=== PATIENT | male | born 1970 | race Caucasian/White ===

== ENCOUNTER 2017-01-19 01:36 | Emergency (ER) | payer MEDICARE, MEDICAID ==
[~2017-01-19] VITALS: Ht 177.8 cm; Wt 97.7 kg
[~2017-01-19 01:36] MED LIST: BACL20TA PO; FENO200C PO; GABA300C10 PO; GABA800T2 PO; OMEP-110 PO; TRAM100T3 PO; TRAM300T9 PO; TRAM50TA2 PO
[2017-01-19] MEDS ORDERED: FAMOTIDINE 20 MG TABLET ONE (03:56)
[2017-01-19] MEDS ORDERED: DIPHENHYDRAMINE 25 MG CAPSULE ONE (03:56)
[2017-01-19] MEDS ORDERED: DIPHENHYDRAMINE 25 MG CAPSULE PO ONE (04:00)
[2017-01-19] MEDS ORDERED: FAMOTIDINE 20 MG TABLET PO ONE (04:00)
[2017-01-19 04:58] VITALS: BP 131/83
== END 2017-01-19 05:00 | disposition home or self-care (01) ==
LOC: ED 04:01
DX: L50.1 Idiopathic urticaria (principal); L50.0 Allergic urticaria; E78.00 Pure hypercholesterolemia, unspecified; K21.9 Gastro-esophageal reflux disease without esophagitis
CPT/HCPCS: 99284; J7512; Q0163

== ENCOUNTER 2018-01-25 16:32 | Emergency (ER) | payer MEDICARE, MEDICAID ==
[~2018-01-25] VITALS: Ht 180.3 cm; Wt 101.2 kg
[2018-01-25 16:55] VITALS: BP 127/89
[2018-01-25 17:33] LABS: BASOPHILS # (AUTO) 0.03 x10^3/uL (0-0.1); BASOPHILS % (AUTO) 1 % (0-1); EOSINOPHILS # (AUTO) 0.22 x10^3/uL (0-0.4); EOSINOPHILS % (AUTO) 5 % (1-7); LYMPHOCYTES # (AUTO) 2.21 x10^3/uL (1-3.4); LYMPHOCYTES % (AUTO) 46 % (22-44); MD NO; MEAN CORPUSCULAR HEMOGLOBIN 29.4 pg (27.5-34.5); MEAN CORPUSCULAR HGB CONC 34.6 g/dL (33.2-36.2); MEAN CORPUSCULAR VOLUME 84.9 fL (81-97); MEAN PLATELET VOLUME 8.4 fL (7.4-10.4); MONOCYTES % (AUTO) 6 % (2-9); NEUTROPHILS # (AUTO) 2.06 x10^3/uL (1.8-6.8); NEUTROPHILS % (AUTO) 43 % (42-75); PLATELET COUNT 263 x10^3/uL (130-400); RED BLOOD COUNT 5.21 x10^6/uL (4.38-5.82); RED CELL DISTRIBUTION WIDTH 14.1 % (9.4-14.8)
[2018-01-25 17:43] LABS: ALANINE AMINOTRANSFERASE 28 U/L (12-78); ALBUMIN 3.6 g/dL (3.4-5.0); ANION GAP 8 mmol/L (5-15); CALCIUM 8.7 mg/dL (8.5-10.1); CHLORIDE 106 mmol/L (98-107); CREATININE 1.32 mg/dL (0.7-1.3)
[2018-01-25 17:48] LABS: ALKALINE PHOSPHATASE 108 U/L (45-117); BILIRUBIN,TOTAL 0.4 mg/dL (0.2-1.0); TOTAL PROTEIN 8.3 g/dL (6.4-8.2); TROPONIN I < 0.015 ng/mL (0.000-0.045)
== END 2018-01-25 18:47 | disposition home or self-care (01) ==
LOC: ED 17:50
DX: R07.89 Other chest pain (principal); K21.9 Gastro-esophageal reflux disease without esophagitis; E03.9 Hypothyroidism, unspecified
CPT/HCPCS: 36415; 71045; 80053; 83690; 84484; 85025; 93005; 99285

== ENCOUNTER 2019-12-14 16:51 | Emergency (ER) | payer MEDICARE, MEDICAID ==
[~2019-12-14] VITALS: Ht 175.3 cm; Wt 102.0 kg
[~2019-12-14 16:51] MED LIST changes: -GABA800T2 PO; +GABA800T5 PO
[2019-12-14 17:11] VITALS: BP 110/69
[2019-12-14] MEDS ORDERED: HYDROcodone/APAP 5/325 TABLET ONE (17:35)
[2019-12-14] MEDS ORDERED: HYDROcodone/APAP 5/325 TABLET PO ONE (18:00)
--- NOTE | 2019-12-14 18:13 | NUR ---
Vik crouch in [facility] - 12/14/19 at 1814 by EDOUARD BOTANY TECHNICIAN AT BEDSIDE FOR I&D.
== END 2019-12-14 18:39 | disposition home or self-care (01) ==
LOC: ED 17:00
DX: S01.01XA Laceration without foreign body of scalp, initial encounter (principal); K21.9 Gastro-esophageal reflux disease without esophagitis; E78.00 Pure hypercholesterolemia, unspecified; Z90.89 Acquired absence of other organs; Z87.891 Personal history of nicotine dependence; W22.8XXA Striking against or struck by other objects, initial encounter; Y93.89 Activity, other specified; Y92.009 Unspecified place in unspecified non-institutional (private) residence as the place of occurrence of the external cause; Y99.8 Other external cause status
CPT/HCPCS: 12001; 70450; 99284

== ENCOUNTER 2020-06-21 13:41 | Emergency (ER) | payer MEDICARE, MEDICAID ==
[~2020-06-21] VITALS: Ht 177.8 cm; Wt 97.7 kg
--- NOTE | 2020-06-21 14:06 | NUR ---
TASK RN: PT AMBULATORY WITH STEADY GAIT TO BATHROOM. UA CUP PROVIDED. FLORINA
--- NOTE | 2020-06-21 14:16 | NUR ---
TASK RN: 49 Y/O MALE PRESENTS TO ED WITH C/O LEFT TESTICLE PAIN. PT STATES "I HAVE SOME REALLY BAD LEFT TESTICLE PAIN AND MY LOWER LEFT BACK. I THINK I HAVE ANOTHER KIDNEY STONE. I ONLY PEED A LITTLE AND THOUGHT I HAD MORE." NO C/O N/V/D, TRAUMA, SYNCOPE, CP, SOB. PT CHANGING INTO GOWN. NO OTHER NEEDS REQUESTED AT THIS TIME.
--- NOTE | 2020-06-21 14:27 | NUR ---
TASK RN: BEDSIDE REPORT TO JUDY WISDOM.
[2020-06-21 14:42] LABS: MICROSCOPIC AUTO
--- NOTE | 2020-06-21 14:48 | NUR ---
PT TO US.
[2020-06-21 14:58] LABS: BASOPHILS # (AUTO) 0.03 x10^3/uL (0-0.1); BASOPHILS % (AUTO) 1 % (0-1); EOSINOPHILS # (AUTO) 0.17 x10^3/uL (0-0.4); EOSINOPHILS % (AUTO) 4 % (1-7); LYMPHOCYTES % (AUTO) 27 % (22-44); MD NO; MEAN CORPUSCULAR HEMOGLOBIN 26.8 pg (27.5-34.5); MEAN CORPUSCULAR HGB CONC 32.3 g/dL (33.2-36.2); MEAN CORPUSCULAR VOLUME 82.9 fL (81-97); MEAN PLATELET VOLUME 8.8 fL (7.4-10.4); MONOCYTES % (AUTO) 6 % (2-9); NEUTROPHILS # (AUTO) 3.03 x10^3/uL (1.8-6.8); NEUTROPHILS % (AUTO) 63 % (42-75); PLATELET COUNT 298 x10^3/uL (130-400); RED BLOOD COUNT 5.11 x10^6/uL (4.38-5.82); RED CELL DISTRIBUTION WIDTH 15.1 % (9.4-14.8)
[2020-06-21 15:00] LABS: ALANINE AMINOTRANSFERASE 31 U/L (12-78); ALBUMIN 3.8 g/dL (3.4-5.0); ANION GAP 8 mmol/L (5-15); CALCIUM 8.8 mg/dL (8.5-10.1); CHLORIDE 113 mmol/L (98-107); CREATININE 1.42 mg/dL (0.7-1.3)
[2020-06-21 15:02] LABS: ALKALINE PHOSPHATASE 127 U/L (45-117); BILIRUBIN,TOTAL 0.4 mg/dL (0.2-1.0); TOTAL PROTEIN 8.2 g/dL (6.4-8.2)
--- NOTE | 2020-06-21 15:15 | NUR ---
PT TO CT.
--- NOTE | 2020-06-21 15:25 | NUR ---
PT RETURNED FROM CT. PER AMY, HE WILL COME BACK TO GET PT WHEN CT SCAN OPEN.
--- NOTE | 2020-06-21 15:27 | NUR ---
PT C/O 29/08 PAIN AFTER US. REQUESTING PAIN MEDS. CA GUTIÉRREZ UPDATED AND AT BEDSIDE.
[2020-06-21] MEDS ORDERED: KETOROLAC 30 MG/1 ML ONE (15:36)
--- NOTE | 2020-06-21 15:50 | NUR ---
PT MEDICATED PER EMAR.
[2020-06-21] MEDS: KETOROLAC 30 MG/1 ML IVPush ONE ×2 (16:00→16:16)
[2020-06-21] MEDS ORDERED: SODIUM CHLORIDE FLUSH 10ML SYR IVF ONE (16:00)
--- NOTE | 2020-06-21 16:01 | NUR ---
ALL TESTS RESULTED. PT IS UP FOR RECHECK AT THIS TIME.
[2020-06-21] MEDS ORDERED: HYDROmorphone 1 MG/ML, 1ML INJ ONE (16:14)
[2020-06-21] MEDS ORDERED: ONDANSETRON 2MG/ML, 2ML ONE (16:15)
[2020-06-21 16:21] VITALS: BP 132/83
--- NOTE | 2020-06-21 16:24 | NUR ---
PT MEDICATED PER EMAR. AWARE OF POC FOR DC.
[2020-06-21] MEDS ORDERED: HYDROmorphone 2 MG/ML, 1ML IVPush PRN (16:30)
[2020-06-21] MEDS ORDERED: ONDANSETRON 2MG/ML, 2ML IVPush ONE (16:30)
--- NOTE | 2020-06-21 16:46 | NUR ---
Patient VSS, nadn. Patient given discharge instructions and they have confirmed that they understand the instructions. Patient ambulatory with steady gait.
== END 2020-06-21 16:53 | disposition home or self-care (01) ==
LOC: ED 14:00
DX: N13.2 Hydronephrosis with renal and ureteral calculous obstruction (principal); N50.812 Left testicular pain; R10.9 Unspecified abdominal pain
CPT/HCPCS: 36415; 74176; 76870; 80053; 81001; 85025; 96374; 96375; 99285; J1170; J1885; J2405

== ENCOUNTER 2021-03-21 18:49 | Emergency (ER) | payer MEDICARE, MEDICAID ==
[~2021-03-21] VITALS: Ht 180.3 cm; Wt 94.2 kg
[2021-03-21 18:51] VITALS: BP 128/76
[2021-03-21] MEDS ORDERED: LIDOCAINE-MPF 1%, 5ML INFIL ONE (19:00)
[2021-03-21] MEDS ORDERED: LIDOCAINE-MPF 1%, 5ML ONE (19:54)
== END 2021-03-21 20:26 | disposition home or self-care (01) ==
LOC: ED 20:15
DX: L03.811 Cellulitis of head [any part, except face] (principal); K21.9 Gastro-esophageal reflux disease without esophagitis; E78.00 Pure hypercholesterolemia, unspecified; E07.9 Disorder of thyroid, unspecified; Z87.891 Personal history of nicotine dependence; Z88.5 Allergy status to narcotic agent
CPT/HCPCS: 99283